=== PATIENT | male | born 1985 | race Caucasian/White ===

== ENCOUNTER 2016-03-02 17:21 | Emergency (ER) | payer OTHER ==
[2016-03-02 18:15] VITALS: BP 147/83; PULSE 103; TEMP 98.4; BMI 28.3
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
[2016-03-02] MEDS ORDERED: KETOROLAC TROMETHAMINE 10 MG TAB PO ONE (18:25)
[2016-03-02] MEDS ORDERED: CYCLOBENZAPRINE 10 MG TAB PO ONE (18:25)
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
== END 2016-03-02 19:39 | disposition home or self-care (01) ==
LOC: EDMC 17:21
DX: S16.1XXA Strain of muscle, fascia and tendon at neck level, initial encounter (principal); S39.012A Strain of muscle, fascia and tendon of lower back, initial encounter; V43.52XA Car driver injured in collision with other type car in traffic accident, initial encounter; F17.200 Nicotine dependence, unspecified, uncomplicated
CPT/HCPCS: 72050; 72110; 99283; J3490